=== PATIENT | female | born 1990 | race Caucasian/White ===

== ENCOUNTER 2020-03-06 08:34 | Emergency (ER) | payer OTHER ==
[~2020-03-06] VITALS: Ht 162.6 cm; Wt 112.5 kg
--- NOTE | 2020-03-06 08:59 | Emergency Department Note ---
History of Present Illnes History of Present Illness History of Present Illness This is a 29 year old female c/o chest pressure continous since last night Historian: Patient Arrival Mode: Car Community Relations Representative Required: No Onset (how long ago): hour(s) (12) Location: substernal Quality: pressure Radiation: Reports neck Severity: moderate Onset quality: gradual Duration (how long): hour(s) (12) Timing of current episode: constant Progression: unchanged Chronicity: new Relieving factors: none Exacerbating factors: eating Associated symptoms: Reports other (co sore throat with swollowing and right sided neck pain) Treatments prior to arrival: none Risk factors: none Past Medical/Family History Physician Review I have reviewed the patient's past medical and family history. Any updates have been documented here. Past Medical History Recent Fever: No Clinical Suspicion of Infectio: No New/Unexplained Change in Ment: No Past Medical History: None Other Medical History: LMP appox 3 weeks ago Past Surgical History: Appendectomy, (times 2) Social History Smoking Cessation: Never Smoker Alcohol Use: Social Any Illegal Drug Use: No TB Exposure/Symptoms: No Physically hurt or threatened: No Family History Family history of heart diseas: No Other Any Pre-Existing Lines (PICC,: No Is patient up to date on immun: No Review of Systems Review of Systems Constitutional: Reports no symptoms EENTM: Reports no symptoms Cardiovascular: Reports as per HPI Respiratory: Reports no symptoms Gastrointestinal: Reports no symptoms Genitourinary: Reports no symptoms Musculoskeletal: Reports no symptoms Integumentary: Reports no symptoms Psychological: Reports no symptoms Endocrine: Reports no symptoms Physical Exam Related Data Allergies: Coded Allergies: No Known Allergies (Unverified , 03/06/20) Vital signs reviewed: Yes Physical Exam CONSTITUTIONAL Constitutional: Present well-developed, Present well-nourished HENT HENT: Present normocephalic, Present atraumatic, Present nose normal, Present other (smll amount of tonsillar exudate) EYES Eyes: Reports PERRL, Reports conjunctivae normal, Reports EOM normal, Reports lids normal NECK Neck: Present ROM normal, Present supple PULMONARY Pulmonary: Present effort normal, Present breath sounds normal CARDIOVASCULAR Cardiovascular: Present regular rhythm, Present heart sounds normal, Present intact distal pulses, Present capillary refill normal GASTROINTESTINAL Abdominal: Present soft, Present nontender, Present bowel sounds normal GENITOURINARY Genitourinary: Present exam deferred SKIN Skin: Present warm, Present dry MUSCULOSKELETAL Musculoskeletal: Present ROM normal NEUROLOGICAL Neurological: Present alert, Present oriented x 3, Present DTRs normal, Present no gross motor or sensory deficits PSYCHOLOGICAL Psychological: Present mood/affect normal, Present behavior normal, Present thought content normal, Present judgement normal Results Laboratory Laboratory cbc mild anemia hgb 11.6 ow wnl. non fasting glucose 157 mild elevation of transaminases cardiac markers wnl D-Dimer wnl strep screen neg preg neg Lab results reviewed: Yes Imaging Imaging results reviewed: Yes Impressions NAD Diagnostics Tests Diagnostic test(s) reviewed: Yes Diagnostic comments ekg nsr with sinus arrhythmia, axis, intervals wnl qrs , st, and t waves wnl. interpreted by me Assessment & Plan Medical Decision Making MDM cardiac w/u negative unlikely that CP related to cardiac disease at this time Assessment & Plan Final Impression: (1) Atypical chest pain Depart Disposition: HOME, SELF-correction Meds Active Scripts Omeprazole Magnesium (PRILOSEC) 10 Mg Suspdr.pkt, 20 MG PO DAILY for 30 Days, #30 0 Refills Prov:RADHA MANNING MD 03/06/20 Reported Medications Multivitamin (MULTIVITAMINS) 1 Each Capsule, DAILY 03/06/20 [ control] No Conflict Check, DAILY 03/06/20 Medications in the ED ASA 81 mg po RADHA MANNING MD Mar 06, 2020 08:59
--- OUTSIDE RECORDS SUMMARY | 2020-03-06 09:13 | XMS REPORT | Continuity of Care Document ---
Author Author [facility] t Organization [facility] Address [address] [place] [address] Phone Unavailable Care Team Providers Care Job Printer Apprentice Name Role Phone Unavailable Unavailable Payers Payer Name Policy Type Policy Number Effective Date Expiration Date S ource Problems This patient has no known problems. Allergies, Adverse Reactions, Alerts Allergy Name Allergy Type Status Severity Reaction(s) Onset Date Inacti ve Date Treating Clinician Comments Source No Known Allergies DA Active U 2019-10-20 00:00:00 [facility] No Known Allergies DA Active U 2019-10-14 00:00:00 [facility] No Known Allergies DA Active U 2014-11-26 00:00:00 [facility] Medications This patient has no known medications. Procedures This patient has no known procedures. Results Test Description Test Time Test Comments Results Result Comments Source CBC W/AUTO DIFF 2019-10-21 05:29:00 Test Item WHITE BLOOD CELL (test code = WBC) 5.5 K/mm3 4.5-12.5 N RED BLOOD CELL (test code = RBC) 3.77 mill/mm3 3.7-5.2 N HEMOGLOBIN (test code = HGB) 9.8 gram/dL 11.5-15.5 L HEMATOCRIT (test code = HCT) 31.9 % 36.0-46.0 L MEAN CELL VOLUME (test code = MCV) 84.6 fL 80-98 N MEAN CELL HGB (test code = MCH) 26.0 picogram 27.0-33.0 L MEAN CELL HGB CONCETRATION (test code = MCHC) 30.7 gram/dL 33.0-36. 0 L RED CELL DISTRIBUTION WIDTH (test code = RDW) 15.9 % 11.6-16. 2 N RED CELL DISTRIBUTION WIDTH SD (test code = RDW-SD) 48.7 fL 37 .0-51.0 N PLATELET COUNT (test code = PLT) 117 K/mm3 150-450 L MEAN PLATELET VOLUME (test code = MPV) 12.4 fL 6.7-11.0 H NEUTROPHIL % (test code = NT%) 70.3 % 39.0-69.0 H IMMATURE GRANULOCYTE % (test code = IG%) 0.2 % 0.0-5.0 N LYMPHOCYTE % (test code = LY%) 18.6 % 25.0-55.0 L MONOCYTE % (test code = MO%) 10.2 % 0.0-10.0 H EOSINOPHIL % (test code = EO%) 0.5 % 0.0-5.0 N BASOPHIL % (test code = BA%) 0.2 % 0.0-1.0 N NUCLEATED RBC % (test code = NRBC%) 0.0 % 0-0 N NEUTROPHIL # (test code = NT#) 3.86 K/mm3 1.8-7.7 N IMMATURE GRANULOCYTE # (test code = IG#) 0.01 x10 3/uL 0-0.03 N LYMPHOCYTE # (test code = LY#) 1.02 K/mm3 1.0-5.0 N MONOCYTE # (test code = MO#) 0.56 K/mm3 0-0.8 N EOSINOPHIL # (test code = EO#) 0.03 K/mm3 0.0-0.5 N BASOPHIL # (test code = BA#) 0.01 K/mm3 0.0-0.2 N NUCLEATED RBC # (test code = NRBC#) 0.00 K/mm3 0.0-0.1 N MANUAL DIFF REQUIRED (test code = MDIFF) NO COMMENTS TO PROGRAM PROFESSIONAL: 1ST DAYHGB [id number] 13:48:00* Test Item Value Reference Range Interpretation Comments HEMOGLOBIN (test code = HGB) 11.5 gram/dL 11.5-15.5 N HEMATOCRIT (test code = HCT) 36.3 % 36.0-46.0 N AG HEPAT B [id number] 06:56:00* Test Item Value Reference Range Interpretation Comments AG HEPAT B SURF (test code = HBSAG) Nonreactive Index Nonreactive SPECIMEN COMMENTS: if 3rd Trimester result unavailableAB [id number] 06:56:00* Test Item Value Reference Range Interpretation Comments AB TREPONEMA (test code = TREPAB) Nonreactive Index NonReactive SPECIMEN COMMENTS: if 3rd Trimester result unavailableHIV 1 2 COMBO AG/AB SCREEN 2019-10-20 06:56:00* Test Item Value Reference Range Interpretation Comments HIV 1 2 COMBO AG/AB SCREEN (test code = [id number]) AB/AG NO N REACTIVE NONREACTIVE NONREACTIVE HIV P24 ANTI GEN NONREACTIVE NONREACTIVE HIV 1&2 ANTIBODY NONREACTIVE THE HIV-1 P24 TEST HELPS DISTINGUISH ACUTE HIV-1INFECTIONFROM ESTABLISHED HIV-1 INFECTION WHEN THE SPECIMEN ISPOSITIVE FOR HIV-1 P24 ANTIGEN. HIV-1 P24 ANTIGEN IS HIGHEST IN THE FIRST FEW WEEKS AFTERINFECTION SPECIMEN COMMENTS: if 3rd Trimester result unavailableAG HEPAT B [id number] 06:32:00* Test Item Value Reference Range Interpretation Comments AG HEPAT B SURF (test code = HBSAG) Nonreactive Index Nonreactive SPECIMEN COMMENTS: if 3rd Trimester result unavailableAB [id number] 06:32:00* Test Item Value Reference Range Interpretation Comments AB TREPONEMA (test code = TREPAB) Nonreactive Index NonReactive SPECIMEN COMMENTS: if 3rd Trimester result unavailableHIV 1 2 COMBO AG/AB SCREEN 2019-10-20 06:32:00* Test Item Value Reference Range Interpretation Comments HIV 1 2 COMBO AG/AB SCREEN (test code = [id number]) NO NREACTIVE SPECIMEN COMMENTS: if 3rd Trimester result unavailableURINALYSIS COMPLETE 2019-10-20 06:20:00* Test Item Value Reference Range Interpretation Comments UA COLOR (test code = COLU) YELLOW YELLOW UA APPEARANCE (test code = APPU) Cloudy CLEAR A UA GLUCOSE DIPSTICK (test code = DGLUU) NEGATIVE mg/dL NEGATIVE UA BILIRUBIN DIPSTICK (test code = BILU) NEGATIVE mg/dL NEGATIVE UA KETONE DIPSTICK (test code = KETU) NEGATIVE mg/dL NEGATIVE UA SPECIFIC GRAVITY (test code = SGU) 1.020 1.001-1.035 UA BLOOD DIPSTICK (test code = VONDA) 0.03 mg/dL (Trace) mg/dL NEGATI VE A UA PH DIPSTICK (test code = MAIRA) 6.5 5.0-8.0 UA PROTEIN DIPSTICK (test code = PROU) 20 (Trace) mg/dL NEGATIVE A UA UROBILINIOGEN DIPSTICK (test code = URO) Normal mg/dL NEGATIVE UA NITRITE DIPSTICK (test code = KURTIS) NEGATIVE NEGATIVE UA LEUKOCYTE ESTERASE W REFLEX (test code = LEUUR) 500 Sanjuana/u L (3+) Sanjuana/uL NEGATIVE A UA WBC (test code = WBCU) 51-100 per HPF 0-5 A UA RBC (test code = RBCU) 6-10 #/HPF 0-5 A UA EPITHELIAL CELLS (test code = EPIU) MANY per HPF FEW UA BACTERIA (test code = BACU) MANY #/HPF NONE A UA MUCUS (test code = MUCU) FEW #/LPF FEW URINALYSIS [id number] 06:19:00* Test Item Value Reference Range Interpretation Comments UA COLOR (test code = COLU) YELLOW YELLOW UA APPEARANCE (test code = APPU) Cloudy CLEAR A UA GLUCOSE DIPSTICK (test code = DGLUU) NEGATIVE mg/dL NEGATIVE UA BILIRUBIN DIPSTICK (test code = BILU) NEGATIVE mg/dL NEGATIVE UA KETONE DIPSTICK (test code = KETU) NEGATIVE mg/dL NEGATIVE UA SPECIFIC GRAVITY (test code = SGU) 1.020 1.001-1.035 UA BLOOD DIPSTICK (test code = VONDA) 0.03 mg/dL (Trace) mg/dL NEGATI VE A UA PH DIPSTICK (test code = MAIRA) 6.5 5.0-8.0 UA PROTEIN DIPSTICK (test code = PROU) 20 (Trace) mg/dL NEGATIVE A UA UROBILINIOGEN DIPSTICK (test code = URO) Normal mg/dL NEGATIVE UA NITRITE DIPSTICK (test code = KURTIS) NEGATIVE NEGATIVE UA LEUKOCYTE ESTERASE W REFLEX (test code = LEUUR) 500 Sanjuana/u L (3+) Sanjuana/uL NEGATIVE A UA WBC (test code = WBCU) per HPF 0-5 UA RBC (test code = RBCU) per HPF 0-5 UA EPITHELIAL CELLS (test code = EPIU) per HPF Few UA BACTERIA (test code = BACU) per HPF NONE URINALYSIS [id number] 06:19:00* Test Item Value Reference Range Interpretation Comments UA COLOR (test code = COLU) YELLOW YELLOW UA APPEARANCE (test code = APPU) Cloudy CLEAR A UA GLUCOSE DIPSTICK (test code = DGLUU) NEGATIVE mg/dL NEGATIVE UA BILIRUBIN DIPSTICK (test code = BILU) NEGATIVE mg/dL NEGATIVE UA KETONE DIPSTICK (test code = KETU) NEGATIVE mg/dL NEGATIVE UA SPECIFIC GRAVITY (test code = SGU) 1.020 1.001-1.035 UA BLOOD DIPSTICK (test code = VONDA) 0.03 mg/dL (Trace) mg/dL NEGATI VE A UA PH DIPSTICK (test code = MAIRA) 6.5 5.0-8.0 UA PROTEIN DIPSTICK (test code = PROU) 20 (Trace) mg/dL NEGATIVE A UA UROBILINIOGEN DIPSTICK (test code = URO) Normal mg/dL NEGATIVE UA NITRITE DIPSTICK (test code = KURTIS) NEGATIVE NEGATIVE UA LEUKOCYTE ESTERASE W REFLEX (test code = LEUUR) 500 Sanjuana/u L (3+) Sanjuana/uL NEGATIVE A UA WBC (test code = WBCU) per HPF 0-5 UA RBC (test code = RBCU) per HPF 0-5 UA EPITHELIAL CELLS (test code = EPIU) per HPF Few UA BACTERIA (test code = BACU) per HPF NONE CBC W/AUTO [id number] 06:09:00* Test Item Value Reference Range Interpretation Comments WHITE BLOOD CELL (test code = WBC) 5.6 K/mm3 4.5-12.5 N RED BLOOD CELL (test code = RBC) 4.13 mill/mm3 3.7-5.2 N HEMOGLOBIN (test code = HGB) 10.9 gram/dL 11.5-15.5 L HEMATOCRIT (test code = HCT) 33.9 % 36.0-46.0 L MEAN CELL VOLUME (test code = MCV) 82.1 fL 80-98 N MEAN CELL HGB (test code = MCH) 26.4 picogram 27.0-33.0 L MEAN CELL HGB CONCETRATION (test code = MCHC) 32.2 gram/dL 33.0-36. 0 L RED CELL DISTRIBUTION WIDTH (test code = RDW) 15.5 % 11.6-16. 2 N RED CELL DISTRIBUTION WIDTH SD (test code = RDW-SD) 45.6 fL 37 .0-51.0 N PLATELET COUNT (test code = PLT) 134 K/mm3 150-450 L MEAN PLATELET VOLUME (test code = MPV) 12.7 fL 6.7-11.0 H NEUTROPHIL % (test code = NT%) 66.9 % 39.0-69.0 N IMMATURE GRANULOCYTE % (test code = IG%) 0.2 % 0.0-5.0 N LYMPHOCYTE % (test code = LY%) 23.3 % 25.0-55.0 L MONOCYTE % (test code = MO%) 8.9 % 0.0-10.0 N EOSINOPHIL % (test code = EO%) 0.5 % 0.0-5.0 N BASOPHIL % (test code = BA%) 0.2 % 0.0-1.0 N NUCLEATED RBC % (test code = NRBC%) 0.0 % 0-0 N NEUTROPHIL # (test code = NT#) 3.76 K/mm3 1.8-7.7 N IMMATURE GRANULOCYTE # (test code = IG#) 0.01 x10 3/uL 0-0.03 N LYMPHOCYTE # (test code = LY#) 1.31 K/mm3 1.0-5.0 N MONOCYTE # (test code = MO#) 0.50 K/mm3 0-0.8 N EOSINOPHIL # (test code = EO#) 0.03 K/mm3 0.0-0.5 N BASOPHIL # (test code = BA#) 0.01 K/mm3 0.0-0.2 N NUCLEATED RBC # (test code = NRBC#) 0.00 K/mm3 0.0-0.1 N MANUAL DIFF REQUIRED (test code = MDIFF) NO
[2020-03-06] MEDS ORDERED: birth control (09:30)
[2020-03-06] MEDS ORDERED: MULTIVITAMINS1 EAC7 (09:30)
[2020-03-06] MEDS ORDERED: ASPIRIN 81 MG CHEW TAB PO ONE (09:48)
[2020-03-06] MEDS ORDERED: PRILOSEC10 M1 PO (09:54)
--- NOTE | 2020-03-06 11:01 | Diagnostic Imaging Report ---
EXAMINATION: Chest PA and lateral views INDICATION: ^chest pain ^[id number] ^0915 ^N COMPARISON: None FINDINGS: TUBES and LINES: None. LUNGS: Lungs are well inflated. Lungs are clear. There is no evidence of pneumonia or pulmonary edema. PLEURA: No pleural effusion or pneumothorax. HEART AND MEDIASTINUM: The cardiomediastinal silhouette is unremarkable. BONES AND SOFT TISSUES: No acute osseous lesion. Soft tissues are unremarkable. UPPER ABDOMEN: No free air under the diaphragm. IMPRESSION: No acute thoracic abnormality. Signed by: Dr. Nafisa Lambert M.D. on 03/06/2020 10:58 AM
[2020-03-06 12:29] VITALS: BP 96/55
== END 2020-03-06 10:52 | disposition home or self-care (01) ==
LOC: FSED 08:52
DX: R07.89 Other chest pain (principal)
CPT/HCPCS: 71046; 80048; 80076; 81025; 82553; 83518; 84484; 85025; 85379; 93005; 99284